=== PATIENT | male | born 1985 | race Caucasian/White ===

== ENCOUNTER 2024-04-18 11:46 | Emergency (ER) | payer OTHER ==
[2024-04-18 11:53] VITALS: BP 135/85; PULSE 78; RESP 16; TEMP 98.8; BMI 29.5
[2024-04-18 13:39] LABS: BASO % 0.9 % (0-2.0); EOS % 1.4 % (0-4.5); HEMATOCRIT 42.7 % (35.4-49); HEMOGLOBIN 14.2 GM/dL (11.7-16.9); LYMPH % 36.8 % (8-40); MCH 29.4 pg (25.7-33.7); MCHC 33.3 g/dl (32.0-35.9); MEAN CELL VOLUME 88.5 fl (80-96); MONO % 7.5 % (3.8-10.2); NEUT % 53.4 % (42.8-82.8); PLATELET COUNT 481 10^3/uL (134-434); RBC 4.83 M/mm3 (4.00-5.60); RDW 14.7 % (11.9-15.9); WHITE BLOOD COUNT 9.6 K/mm3 (4.0-10.0)
[2024-04-18 14:01] LABS: POTASSIUM 5.1 mmol/L (3.5-5.1)
[2024-04-18 14:03] LABS: CALCIUM 9.9 mg/dL (8.5-10.1)
[2024-04-18 14:04] LABS: ALBUMIN 4.2 g/dl (3.4-5.0); BLOOD UREA NITROGEN 13.5 mg/dL (7-18)
[2024-04-18 14:07] LABS: CREATININE 0.8 mg/dL (0.55-1.3)
[2024-04-18 14:09] LABS: BILIRUBIN,TOTAL 0.3 mg/dL (0.2-1)
[2024-04-18 14:33] LABS: ERYTHROCYTE SEDIMENTATION RATE 13 mm/hr (0-10)
[2024-04-18 14:50] LABS: TOT PROT 8.1 g/dl (6.4-8.2)
[2024-04-18] MEDS: ACETAMINOPHEN 500 MG TABLET (FP) PO ONE (16:35)
[2024-04-18] MEDS ORDERED: diazePAM 5 MG TABLET ONE (17:29)
[2024-04-18] MEDS ORDERED: LIDOCAINE 4% PATCH TP ONE (17:30)
[2024-04-18] MEDS: LIDOCAINE 5% TOPICAL PATCH TP ONE (17:36)
[2024-04-18] MEDS: SODIUM CHLORIDE 0.9% 500 ML INFUS.BAG IV ONE (17:36)
[2024-04-18] MEDS: diazePAM 5 MG TABLET PO ONE (17:36)
[2024-04-18] MEDS ORDERED: LIDOCAINE PATCH REMOVAL MC SCH (22:00)
== END 2024-04-18 18:50 | disposition home or self-care (01) ==
LOC: JER 11:46
DX: M62.838 Other muscle spasm (principal); M54.2 Cervicalgia; R51.9 Headache, unspecified; H53.149 Visual discomfort, unspecified; R11.0 Nausea
CPT/HCPCS: 36415; 70450-TC; 70496-TC; 70498-TC; 80053; 85025; 85651; 99284-25